=== PATIENT | male | born 1990 | race Caucasian/White ===

== ENCOUNTER 2024-10-07 05:24 | Day surgery (SDC) | payer OTHER ==
[2024-10-03 16:21] VITALS: BMI 27.9
[2024-10-07 08:40] VITALS: RESP 18
[2024-10-07] MEDS ORDERED: MIDAZOLAM HCL 2 MG/2 ML SINGLE DOSE VIAL ONE (09:57)
[2024-10-07] MEDS ORDERED: KETOROLAC TROMETHAMINE 30 MG/1 ML VIAL ONE (09:57)
[2024-10-07] MEDS ORDERED: ONDANSETRON 4 MG/2 ML VIAL ONE (09:57)
[2024-10-07 11:52] VITALS: BP 130/67; PULSE 75; TEMP 98.2
== END 2024-10-07 12:00 | disposition home or self-care (01) ==
LOC: JASU-SURG 05:24
PROVIDERS: ATTEND Urology
PROC: 0TF4XZZ Fragmentation in Left Kidney Pelvis, External Approach (ICD-10-PCS; principal; 2024-10-07 10:30)
DX: N20.0 Calculus of kidney (principal)